=== PATIENT | female | born 1985 | race Two or more races ===

== ENCOUNTER 2021-06-22 09:55 | Inpatient (IN) | payer OTHER ==
[2021-06-22 11:20] VITALS: BMI 34.5
[2021-06-22 11:30] LABS: BASO % 0.3 % (0-2.0); EOS % 0.9 % (0-4.5); HEMATOCRIT 40.2 % (32.4-45.2); HEMOGLOBIN 13.1 GM/dL (10.7-15.3); LYMPH % 17.2 % (8-40); MCH 29.7 pg (25.7-33.7); MCHC 32.7 g/dl (32.0-36.0); MEAN PLT VOLUME 9.4 fl (7.5-11.1); MONO % 7.1 % (3.8-10.2); NEUT % 74.5 % (42.8-82.8); PLATELET COUNT 243 10^3/uL (134-434); RBC 4.42 M/mm3 (3.60-5.2); RDW 14.9 % (11.6-15.6); WHITE BLOOD COUNT 7.8 K/mm3 (4.0-10.0)
[2021-06-22 11:46] LABS: INR 0.92 (0.83-1.09); PROTHROMBIN TIME (PATIENT) 11.4 SEC (9.7-13.0)
[2021-06-22 11:48] LABS: ACTIVATED PTT 28.2 SECONDS (25.2-36.5)
[2021-06-22] MEDS ORDERED: ELECTROLYTE-148 SOLN 1,000 ML IV SCH ×2 (12:00→14:21)
[2021-06-22 12:34] LABS: BLOOD UREA NITROGEN 6.7 mg/dL (7-18)
[2021-06-22 12:37] LABS: CREATININE 0.5 mg/dL (0.55-1.3)
[2021-06-22 12:50] LABS: HIV INTERPRETATION NEGATIVE (NEGATIVE)
[2021-06-22] MEDS ORDERED: DINOPROSTONE 10 MG VAGINAL SUPPOSITORY VG ONE (14:20)
[2021-06-22] MEDS ORDERED: FENTANYL/BUPIVACAINE/NS/PF - PCEA - 50 ML DISP.SYRIN EP ONE (21:58)
[2021-06-22] MEDS ORDERED: NALOXONE HCL 0.4 MG/ML VIAL IVPUSH PRN (21:59)
[2021-06-22] MEDS ORDERED: FENTANYL/BUPIVACAINE/NS/PF - PCEA - 50 ML DISP.SYRIN EP SCH (22:00)
[2021-06-23] MEDS ORDERED: LIDOCAINE HCL 1% PRESERVATIVE FREE - 30ML VIAL ONE (01:32)
[2021-06-23] MEDS ORDERED: OXYTOCIN 20 UNITS in 0.9% NS 20 UNIT/1,000 ML INFUS.BAG IV ONE ×3 (01:32→07:36)
[2021-06-23] MEDS ORDERED: FENTANYL/BUPIVACAINE/NS/PF - PCEA - 50 ML DISP.SYRIN EP ONE (02:33)
[2021-06-23] MEDS ORDERED: OXYTOCIN 30 UNITS in 0.9% NS 30 UNIT/500 ML INFUS.BAG IVPB SCH (03:30)
[2021-06-23] MEDS ORDERED: ePHEDrine SULFATE 50 MG/1 ML AMPULE ONE (03:42)
[2021-06-23] MEDS ORDERED: PHENYLEPHRINE HCL 10 MG/1 ML SINGLE DOSE VIAL ONE (03:43)
[2021-06-23] MEDS ORDERED: OXYTOCIN 10 UNITS/ML VIAL ONE (03:43)
[2021-06-23] MEDS ORDERED: DEXAMETHASONE SOD PHOSPHATE 4 MG/1 ML VIAL ONE (04:19)
[2021-06-23] MEDS ORDERED: KETOROLAC TROMETHAMINE 30 MG/1 ML VIAL ONE (04:19)
[2021-06-23] MEDS ORDERED: ONDANSETRON 4 MG/2 ML VIAL ONE (04:19)
[2021-06-23] MEDS ORDERED: MIDAZOLAM HCL 2 MG/2 ML SINGLE DOSE VIAL ONE ×2 (04:31→05:24)
[2021-06-23] MEDS ORDERED: diphenhydrAMINE HCL 25 MG CAPSULE (FP) PO PRN (05:28)
[2021-06-23] MEDS ORDERED: BENZOCAINE 28 GM HEMORRHOIDAL OINTMENT PR PRN (05:28)
[2021-06-23] MEDS ORDERED: IBUPROFEN 600 MG TABLET (FP) PO PRN (05:28)
[2021-06-23] MEDS ORDERED: METHYLERGONOVINE MALEATE 0.2 MG/1 ML AMP IM PRN (05:28)
[2021-06-23] MEDS ORDERED: BENZOCAINE 20% 57 GM BOTTLE TP PRN (05:28)
[2021-06-23] MEDS ORDERED: IBUPROFEN 800 MG/8 ML IJ IVPB PRN (05:28)
[2021-06-23] MEDS ORDERED: WITCH HAZEL 50% (TUCKS) 40 PAD/JAR PAD TP PRN (05:28)
[2021-06-23] MEDS ORDERED: oxyCODONE HCL 5 MG TABLET PO PRN (05:28)
[2021-06-23] MEDS ORDERED: DEXTROSE 5%-LACTATED RINGERS 1,000 ML IV SCH (05:30)
[2021-06-23] MEDS ORDERED: OXYTOCIN 20 UNITS in 0.9% NS 20 UNIT/1,000 ML INFUS.BAG IV SCH (05:30)
[2021-06-23] MEDS ORDERED: morphine SULFATE/PF 0.5 MG/ML (2cc Syringe - QUVA) EP ONE (06:17)
[2021-06-23] MEDS ORDERED: ONDANSETRON 4 MG/2 ML VIAL IVPUSH PRN (06:17)
[2021-06-23 07:28] LABS: CORD BASE EXCESS -6.7 mmol/L (0-2); CORD HCO3 22.4 mmHg (20-29); CORD PCO2 57.9 mmHg (30-78); CORD pH 7.205 (7.14-7.44)
[2021-06-23 07:33] LABS: CORD HCO3 21.3 mmHg (20-29); CORD PCO2 59.7 mmHg (30-78); CORD pH 7.171 (7.14-7.44)
[2021-06-23] MEDS ORDERED: IBUPROFEN 800 MG/8 ML IJ IVPB ONE (07:36)
[2021-06-23] MEDS: CEFAZOLIN 1 GM/D5W 1 GM/50 ML BAG IVPB SCH ×2 (09:41→18:11)
[2021-06-23 11:06] LABS: HEMATOCRIT 28.4 % (32.4-45.2); HEMOGLOBIN 9.4 GM/dL (10.7-15.3); LYMPH % 3.4 % (8-40); MCH 30.2 pg (25.7-33.7); MCHC 33.1 g/dl (32.0-36.0); MEAN CELL VOLUME 91.1 fl (80-96); NEUT % 92.6 % (42.8-82.8); PLATELET COUNT 210 10^3/uL (134-434); RBC 3.12 M/mm3 (3.60-5.2); RDW 15.4 % (11.6-15.6); WHITE BLOOD COUNT 13.7 K/mm3 (4.0-10.0)
[2021-06-23 12:00] LABS: ANISOCYTOSIS 0; HELMET CELLS 0; HOWELL-JOLLY BODIES 0; MACROCYTOSIS 0; OVALOCYTE 0; PLATELET ESTIMATE NORMAL; ROULEAU 0; SICKELED CELLS 0; TARGET CELLS 0; TEAR DROP CELLS 0; TOXIC GRANULATION 0
[2021-06-23] MEDS ORDERED: SENNOSIDES/DOCUSATE COMBO (SENNA PLUS) TABLET (UD) PO PRN (22:00)
[2021-06-23] MEDS: SIMETHICONE 80 MG TAB.CHEW (FP) PO PRN (22:19)
[2021-06-23] MEDS: ACETAMINOPHEN 325 MG TABLET (FP) PO PRN (22:19)
[2021-06-24] MEDS ORDERED: BISACODYL 10 MG SUPP.RECT PR PRN (05:29)
[2021-06-24] MEDS: ACETAMINOPHEN 325 MG TABLET (FP) PO PRN ×3 (07:35→22:45)
[2021-06-24] MEDS: SIMETHICONE 80 MG TAB.CHEW (FP) PO PRN ×2 (07:35→22:45)
[2021-06-24] MEDS: IBUPROFEN 600 MG TABLET (FP) PO PRN ×2 (07:36→17:10)
[2021-06-24 11:30] LABS: BASO % 0.1 % (0-2.0); EOS % 0.5 % (0-4.5); HEMATOCRIT 24.5 % (32.4-45.2); HEMOGLOBIN 8.2 GM/dL (10.7-15.3); LYMPH % 9.9 % (8-40); MCH 30.8 pg (25.7-33.7); MCHC 33.4 g/dl (32.0-36.0); MEAN CELL VOLUME 92.3 fl (80-96); MEAN PLT VOLUME 9.5 fl (7.5-11.1); MONO % 5.4 % (3.8-10.2); NEUT % 84.1 % (42.8-82.8); PLATELET COUNT 206 10^3/uL (134-434); RBC 2.66 M/mm3 (3.60-5.2); RDW 15.6 % (11.6-15.6); WHITE BLOOD COUNT 11.1 K/mm3 (4.0-10.0)
[2021-06-24] MEDS: oxyCODONE HCL 5 MG TABLET PO PRN ×2 (14:33→22:46)
[2021-06-24] MEDS: DOCUSATE SODIUM 100 MG CAPSULE (FP) PO PRN ×2 (17:21→17:23)
[2021-06-24] MEDS: FERROUS SO4 325 MG TABLET (FP) PO SCH (17:21)
[2021-06-24] MEDS: ASCORBIC ACID 250 MG TABLET (FP) PO SCH (21:48)
[2021-06-25 00:44] LABS: BASO % 0.3 % (0-2.0); EOS % 1.2 % (0-4.5); HEMATOCRIT 24.7 % (32.4-45.2); HEMOGLOBIN 8.2 GM/dL (10.7-15.3); LYMPH % 14.9 % (8-40); MCH 30.2 pg (25.7-33.7); MCHC 33.2 g/dl (32.0-36.0); MEAN PLT VOLUME 8.7 fl (7.5-11.1); MONO % 5.9 % (3.8-10.2); NEUT % 77.7 % (42.8-82.8); PLATELET COUNT 235 10^3/uL (134-434); RBC 2.72 M/mm3 (3.60-5.2); RDW 15.6 % (11.6-15.6); WHITE BLOOD COUNT 12.1 K/mm3 (4.0-10.0)
[2021-06-25] MEDS: ACETAMINOPHEN 325 MG TABLET (FP) PO PRN ×2 (03:13→08:42)
[2021-06-25] MEDS: SIMETHICONE 80 MG TAB.CHEW (FP) PO PRN ×2 (03:13→08:41)
[2021-06-25] MEDS: oxyCODONE HCL 5 MG TABLET PO PRN (03:14)
[2021-06-25] MEDS: FERROUS SO4 325 MG TABLET (FP) PO SCH (08:41)
[2021-06-25] MEDS: DOCUSATE SODIUM 100 MG CAPSULE (FP) PO PRN (08:41)
[2021-06-25] MEDS: IBUPROFEN 600 MG TABLET (FP) PO PRN (08:42)
[2021-06-25] MEDS: ASCORBIC ACID 250 MG TABLET (FP) PO SCH (09:13)
[2021-06-25 11:32] VITALS: BP 104/71; PULSE 92; TEMP 98.8
== END 2021-06-25 13:55 | disposition home or self-care (01) | DRG 540 ==
LOC: JLDR 09:55 → J3W 06-23 08:13
PROVIDERS: ADMIT Internal Medicine; ATTEND Internal Medicine
PROC: 3E0P7VZ Introduction of Hormone into Female Reproductive, Via Natural or Artificial Opening (ICD-10-PCS; 2021-06-22)
PROC: 10D00Z1 Extraction of Products of Conception, Low, Open Approach (ICD-10-PCS; principal; 2021-06-23)
PROC: 0UL70ZZ Occlusion of Bilateral Fallopian Tubes, Open Approach (ICD-10-PCS; 2021-06-23)
DX: O76 Abnormality in fetal heart rate and rhythm complicating labor and delivery (principal); O48.0 Post-term pregnancy; O99.892 Other specified diseases and conditions complicating childbirth; N73.6 Female pelvic peritoneal adhesions (postinfective); Z30.2 Encounter for sterilization; Z3A.40 40 weeks gestation of pregnancy; Z37.0 Single live birth
CPT/HCPCS: 36415; 36600; 80048; 82803; 85025; 85610; 85730; 86780; 86850; 86900; 86901; 87389; 88302-TC; 88304-TC; 88307-TC; C9803; U0003; U0005

== ENCOUNTER 2023-06-10 12:36 | Emergency (ER) | payer OTHER ==
[2023-06-10 12:47] VITALS: RESP 18; TEMP 98.3; BMI 31.6
[2023-06-10] MEDS ORDERED: SODIUM CHLORIDE 0.9% 500 ML INFUS.BAG IV ONE (14:04)
[2023-06-10] MEDS ORDERED: ONDANSETRON 4 MG/2 ML VIAL IVPUSH ONE (14:04)
[2023-06-10] MEDS ORDERED: ACETAMINOPHEN 1000 MG/100 ML BAG IVPB ONE (14:06)
[2023-06-10 14:57] LABS: BASO % 0.5 % (0-2.0); EOS % 4.8 % (0-4.5); HEMATOCRIT 39.7 % (32.4-45.2); HEMOGLOBIN 12.7 GM/dL (10.7-15.3); LYMPH % 21.8 % (8-40); MCH 28.3 pg (25.7-33.7); MCHC 31.9 g/dl (32.0-36.0); MEAN CELL VOLUME 88.5 fl (80-96); MEAN PLT VOLUME 8.8 fl (7.5-11.1); MONO % 6.6 % (3.8-10.2); NEUT % 66.3 % (42.8-82.8); PLATELET COUNT 297 10^3/uL (134-434); RBC 4.48 M/mm3 (3.60-5.2); RDW 15.5 % (11.6-15.6)
[2023-06-10 15:01] LABS: INR 1.09 (0.83-1.09); PROTHROMBIN TIME (PATIENT) 12.6 SEC (9.7-13.0)
[2023-06-10 15:04] LABS: ACTIVATED PTT 32.1 SECONDS (25.2-36.5)
[2023-06-10] MEDS ORDERED: ONDANSETRON 4 MG/2 ML VIAL ONE (15:11)
[2023-06-10] MEDS ORDERED: ACETAMINOPHEN INJECTION 100 ML IVPB ONE (15:11)
[2023-06-10 15:32] LABS: POTASSIUM 3.9 mmol/L (3.5-5.1)
[2023-06-10 15:34] LABS: CALCIUM 8.9 mg/dL (8.5-10.1)
[2023-06-10 15:35] LABS: ALBUMIN 3.4 g/dl (3.4-5.0); BLOOD UREA NITROGEN 6.2 mg/dL (7-18)
[2023-06-10 15:38] LABS: CREATININE 0.6 mg/dL (0.55-1.3)
[2023-06-10 15:40] LABS: BILIRUBIN,TOTAL 0.2 mg/dL (0.2-1); TOT PROT 6.9 g/dl (6.4-8.2)
[2023-06-10 16:36] LABS: PH,URINE 7.5 (5.0-8.0); URINE APPEARANCE CLEAR; URINE BILIRUBIN NEGATIVE (NEGATIVE); URINE COLOR YELLOW; URINE GLUCOSE (UA) NEGATIVE (NEGATIVE); URINE KETONE NEGATIVE (NEGATIVE); URINE LEUK ESTERASE NEGATIVE (NEGATIVE); URINE NITRITE NEGATIVE (NEGATIVE); URINE PROTEIN NEGATIVE (NEGATIVE); URINE UROBILINOGEN 0.2 mg/dL (0.2-1.0)
[2023-06-10 19:24] VITALS: BP 100/61; PULSE 84
[2023-06-10] MEDS ORDERED: KETOROLAC TROMETHAMINE 30 MG/1 ML VIAL IVPUSH ONE (20:18)
[2023-06-10] MEDS ORDERED: MISOPROSTOL 200 MCG TABLET PO SCH (20:30)
[2023-06-10] MEDS ORDERED: KETOROLAC TROMETHAMINE 30 MG/1 ML VIAL ONE (21:26)
== END 2023-06-10 21:34 | disposition home or self-care (01) ==
LOC: JER 12:36
PROC: 3E033NZ Introduction of Analgesics, Hypnotics, Sedatives into Peripheral Vein, Percutaneous Approach (ICD-10-PCS; principal; 2023-06-10)
PROC: 3E033GC Introduction of Other Therapeutic Substance into Peripheral Vein, Percutaneous Approach (ICD-10-PCS; 2023-06-10)
PROC: 3E0333Z Introduction of Anti-inflammatory into Peripheral Vein, Percutaneous Approach (ICD-10-PCS; 2023-06-10)
DX: O26.891 Other specified pregnancy related conditions, first trimester (principal); R10.30 Lower abdominal pain, unspecified; M79.604 Pain in right leg; M79.605 Pain in left leg; O21.9 Vomiting of pregnancy, unspecified; O34.61 Maternal care for abnormality of vagina, first trimester; O03.9 Complete or unspecified spontaneous abortion without complication; Z3A.08 8 weeks gestation of pregnancy
CPT/HCPCS: 36415; 76817-TC; 80053; 81003; 83605; 84702; 84703; 85025; 85610; 85730; 86850; 86900; 86901; 87491; 87591; 99284-25

== ENCOUNTER 2024-08-11 18:55 | Emergency (ER) | payer OTHER ==
[2024-08-11 19:02] VITALS: BP 141/81; PULSE 91; RESP 18; TEMP 98.9; BMI 35.2
[2024-08-11] MEDS ORDERED: DEXAMETHASONE SOD PHOSPHATE 10 MG/1 ML VIAL ONE (19:27)
[2024-08-11] MEDS ORDERED: ALBUTEROL SO4 2.5/IPRATROPIUM 0.5 INH SOL 3 ML VIAL.NEB. NEB ONE (19:27)
[2024-08-11] MEDS: ALBUTEROL SO4 2.5/IPRATROPIUM 0.5 INH SOL 3 ML VIAL.NEB. NEB SCH (19:41)
[2024-08-11 19:55] LABS: BASO % 1.3 % (0-2.0); EOS % 8.3 % (0-4.5); HEMATOCRIT 43.6 % (32.4-45.2); HEMOGLOBIN 14.2 GM/dL (10.7-15.3); MCH 28.8 pg (25.7-33.7); MCHC 32.7 g/dl (32.0-36.0); MEAN CELL VOLUME 88.1 fl (80-96); MEAN PLT VOLUME 9.5 fl (7.5-11.1); MONO % 6.8 % (3.8-10.2); NEUT % 52.6 % (42.8-82.8); PLATELET COUNT 327 10^3/uL (134-434); RBC 4.95 M/mm3 (3.60-5.2); RDW 14.2 % (11.6-15.6); WHITE BLOOD COUNT 7.8 K/mm3 (4.0-10.0)
[2024-08-11] MEDS: DEXAMETHASONE SOD PHOSPHATE 10 MG/1 ML VIAL IVPUSH ONE (19:59)
[2024-08-11] MEDS ORDERED: ACETAMINOPHEN 325 MG TABLET (FP) ONE (20:01)
[2024-08-11 20:03] LABS: INR 0.98 (0.83-1.09); PROTHROMBIN TIME (PATIENT) 11.3 SEC (9.7-13.0)
[2024-08-11] MEDS: ACETAMINOPHEN 1000 MG/100 ML BAG IVPB ONE (20:05)
[2024-08-11 20:06] LABS: ACTIVATED PTT 34.8 SECONDS (25.2-36.5)
[2024-08-11] MEDS ORDERED: LORATADINE 10 MG TABLET ONE (20:06)
[2024-08-11] MEDS: LORATADINE 10 MG TABLET PO ONE (20:07)
[2024-08-11 20:19] LABS: POTASSIUM 3.9 mmol/L (3.5-5.1)
[2024-08-11 20:20] LABS: ALBUMIN 4.1 g/dl (3.4-5.0); CALCIUM 9.2 mg/dL (8.5-10.1)
[2024-08-11 20:22] LABS: BLOOD UREA NITROGEN 9.2 mg/dL (7-18)
[2024-08-11 20:24] LABS: CREATININE 0.7 mg/dL (0.55-1.3)
[2024-08-11 20:26] LABS: BILIRUBIN,TOTAL 0.3 mg/dL (0.2-1); TOT PROT 7.9 g/dl (6.4-8.2)
[2024-08-11] MEDS ORDERED: ACETAMINOPHEN INJECTION 100 ML ONE (21:16)
== END 2024-08-11 21:45 | disposition home or self-care (01) ==
LOC: JER 18:55
PROC: 3E033GC Introduction of Other Therapeutic Substance into Peripheral Vein, Percutaneous Approach (ICD-10-PCS; principal; 2024-08-11)
PROC: 3E0F7GC Introduction of Other Therapeutic Substance into Respiratory Tract, Via Natural or Artificial Opening (ICD-10-PCS; 2024-08-11)
DX: R06.02 Shortness of breath (principal); R05.9 Cough, unspecified; R50.9 Fever, unspecified; B34.9 Viral infection, unspecified; R07.89 Other chest pain; Z20.822 Contact with and (suspected) exposure to COVID-19
CPT/HCPCS: 0241U-QW; 36415; 71046-TC-FY; 80053; 84484; 84703; 85025; 85610; 85730; 93005; 93010; 94640; 96374; 99285-25; J1100